=== PATIENT | female | born 1965 | race Caucasian/White ===

== ENCOUNTER 2016-04-18 11:07 | Observation (INO) | payer MEDICARE, OTHER ==
[~2016-04-18] VITALS: Ht 172.7 cm; Wt 61.3 kg
[2016-04-18] VITALS (9 sets, daily range): BP systolic 91–117; BP diastolic 56–68; PULSE 77–114; RESP 18–22; TEMP 98; O2SAT 87–96
[~2016-04-18 11:07] MED LIST: LORT5TAB PO; PARO10TA PO; TAB-TAB PO
[2016-04-18] MEDS ORDERED: HYDR-3533 PO (11:21)
[2016-04-18] MEDS ORDERED: PAXI10TA2 PO (11:21)
[2016-04-18] MEDS ORDERED: MULT1TAB84 PO (11:21)
--- NOTE | 2016-04-18 11:35 | PD ---
HPI Chief Complaint: Respiratory Symptoms Time Seen by Provider: 11:17 Travel History International Travel<30 days: No Contact w/Intl Traveler<30days: No Traveled to known affect area: No History of Present Illness HPI 50-year-old female came to the emergency room with history of shortness of breath and cough for past couple days. Patient is a heavy smoker and history of lung cancer with left lower lobe resection in the past. No history of fever or chills. No history of chest pain. Her oxygen saturation was in the high 80s in ER. [facility] Past Medical History Narrative Medical List of her past medical history as reviewed from the nursing note. Depression: Yes Cancer: Yes (lung cancer- LEFT LOWER LOBE) Diminished Hearing: No Musculoskeletal: Yes (HERNIATED DISC) Seizures: Yes ?: Not Past Surgical History Other Surgery: Yes (LEFT LOWER LOBE LUNG CA REMOVAL) Social History Alcohol Use: Yes (OCC) Tobacco Use: Yes (1/2 ppd) Substance Use: No Allergies-Medications (Allergen,Severity, Reaction): Coded Allergies: Penicillin (Verified Allergy, Severe, SWELLS UP, 04/18/16) Comments List of her allergies reviewed from the nursing note. Reported Meds & Prescriptions Reported Meds & Active Scripts Active Symbicort Inh (Budesonide/Formoterol Fumarate) 160-4.5 Mcg/Act Aero 1 Puff INH Q12HR Ventolin Hfa 18 GM Inh (Albuterol Sulfate) 90 Mcg/Act Aer 2 Puff INH Q4-6H PRN Prednisone 20 Mg Tab 20 Mg PO BID Levaquin (Levofloxacin) 750 Mg Tab 750 Mg PO DAILY 7 Days Reported Multivitamin Adults (Multiple Vitamins W/ Minerals) 1 Tab 1 Tab PO DAILY Paxil (Paroxetine HCl) 10 Mg Tab 10 Mg PO BID Lortab (Hydrocodone-Acetaminophen) 5-325 Mg Tab 1 Tab PO TID PRN Narrative Medication List of her home medications reviewed from the nursing note. Review of Systems Except as stated in HPI: all other systems reviewed are Neg Physical Exam Narrative GENERAL: Awake, alert, anxious, moderate distress SKIN: Warm and dry. HEAD: Atraumatic. Normocephalic. EYES: Pupils equal and round. No scleral icterus. No injection or drainage. ENT: No nasal bleeding or discharge. Mucous membranes pink and moist. NECK: Trachea midline. No JVD. CARDIOVASCULAR: Regular rate and rhythm. No murmur appreciated. RESPIRATORY: No accessory muscle use. Coarse breath sounds, end expiratory wheeze GASTROINTESTINAL: Abdomen soft, non-tender, nondistended. Hepatic and splenic margins not palpable. MUSCULOSKELETAL: No obvious deformities. No clubbing. No cyanosis. No edema. NEUROLOGICAL: Awake and alert. No obvious cranial nerve deficits. Motor grossly within normal limits. Normal speech. PSYCHIATRIC: Appropriate mood and affect; insight and judgment normal. Data Data Last Documented VS Vital Signs Date Time Temp Pulse Resp B/P Pulse Ox O2 Delivery O2 Flow Rate FiO2 04/18/16 14:56 87 Room Air 04/18/16 13:00 77 20 106/59 2 04/18/16 11:09 98.0 Orders Electrocardiogram (04/18/16 11:57) Basic Metabolic Panel (Bmp) (04/18/16 11:57) Ckmb (Isoenzyme) Profile (04/18/16 11:57) Complete Blood Count With Diff (04/18/16 11:57) Magnesium (Mg) (04/18/16 11:57) Prothrombin Time / Inr (Pt) (04/18/16 11:57) Act Partial Throm Time (Ptt) (04/18/16 11:57) Troponin I (04/18/16 11:57) Chest, Single Ap (04/18/16 11:57) Ecg Monitoring (04/18/16 11:57) Bilateral Bp Monitoring (04/18/16 11:57) Iv Access Insert/Monitor (04/18/16 11:57) Oximetry (04/18/16 11:57) Oxygen Administration (04/18/16 11:57) Aspirin Chew (Aspirin Chew) (04/18/16 12:00) Sodium Chloride 0.9% Flush (Ns Flush) (04/18/16 12:00) Albuterol Neb (Albuterol Neb) (04/18/16 12:00) Ct Pulmonary Angiogram (04/18/16 ) Methylprednisolone So Succ Inj (Solumedr (04/18/16 12:00) Sodium Chlor 0.9% 1000 Ml Inj (Ns 1000 M (04/18/16 12:00) Blood Culture (04/18/16 12:02) Lactic Acid (04/18/16 12:02) Iohexol 350 Inj (Omnipaque 350 Inj) (04/18/16 13:47) Albuterol Neb (Albuterol Neb) (04/18/16 15:00) Admit Order (Ed Use Only) (04/18/16 15:34) Labs Laboratory Tests Test 04/18/16 04/18/16 12:00 12:03 Lactic Acid Level 1.4 mmol/L White Blood Count 13.2 TH/MM3 Red Blood Count 4.23 MIL/MM3 Hemoglobin 14.1 GM/DL Hematocrit 42.4 % Mean Corpuscular Volume 100.1 FL Mean Corpuscular Hemoglobin 33.2 PG Mean Corpuscular Hemoglobin 33.2 % Concent Red Cell Distribution Width 13.0 % Platelet Count 243 TH/MM3 Mean Platelet Volume 8.9 FL Neutrophils (%) (Auto) 77.3 % Lymphocytes (%) (Auto) 15.9 % Monocytes (%) (Auto) 6.0 % Eosinophils (%) (Auto) 0.1 % Basophils (%) (Auto) 0.7 % Neutrophils # (Auto) 10.2 TH/MM3 Lymphocytes # (Auto) 2.1 TH/MM3 Monocytes # (Auto) 0.8 TH/MM3 Eosinophils # (Auto) 0.0 TH/MM3 Basophils # (Auto) 0.1 TH/MM3 CBC Comment DIFF FINAL Differential Comment Prothrombin Time 10.8 SEC Prothromb Time International 1.0 RATIO Ratio Activated Partial 30.5 SEC Thromboplast Time Sodium Level 138 MEQ/L Potassium Level 3.7 MEQ/L Chloride Level 105 MEQ/L Carbon Dioxide Level 25.4 MEQ/L Anion Gap 8 MEQ/L Blood Urea Nitrogen 11 MG/DL Creatinine 0.70 MG/DL Estimat Glomerular Filtration 88 ML/MIN Rate Random Glucose 158 MG/DL Calcium Level 9.2 MG/DL Magnesium Level 1.9 MG/DL Total Creatine Kinase 94 U/L Troponin I LESS THAN 0.02 NG/ML MDM Medical Decision Making Medical Screen Exam Complete: Yes Emergency Medical Condition: Yes Medical Record Reviewed: Yes Interpretation(s) Twelve-lead EKG was reviewed by me. Normal sinus rhythm, normal axis, nonspecific ST-T wave changes. Heart rate of 79 Beats per minute. Differential Diagnosis COPD exacerbation, pneumonia, bronchitis, PE Narrative Course 3:04 PM blood test results of back and within normal limit. Patient was given 3 duo nebs after which she said she symptomatically felt little better. However her oxygen saturation continued to be in low 90s and upon ambulation went down to 87% on room air. Patient is getting 3 more albuterol nebulizers and I have decided to admit her for COPD exacerbation. CAT scan was negative for PE. Critical Care Narrative Aggregate critical care time was 30 minutes. Time to perform other separately billable procedures was not included in the critical care time. My time did not include minutes spent treating any other patients simultaneously or on activities that did not directly contribute to the patient's treatment. The services I provided to this patient were to treat and/or prevent clinically significant deterioration that could result in: Acute COPD exacerbation, hypoxia, multiple nebulizers I provided critical care services requiring my management, as noted below: Chart data review, documentation time, medication orders and management, vital sign assessments/reviewing monitor data, ordering and reviewing lab tests, ordering and interpreting/reviewing x-rays and diagnostic studies, care of the patient and discussion of the patient with the admitting physicians. Procedures EKG Prior to Arrival: No Diagnosis Primary Impression: Acute exacerbation of chronic obstructive pulmonary disease (COPD) Additional Impressions: Hypoxia Respiratory distress Admitting Information Admitting Physician Requests: Admit Scripts Budesonide-Formoterol Inh (Symbicort Inh)160-4.5 Mcg/Act Aero1 Puff INH Q12HR # 1 INHALER Ref 0 Prov:Renato Abarca DO 04/18/16 Albuterol 18 GM Inh (Ventolin Hfa 18 GM Inh)90 Mcg/Act Aer2 Puff INH Q4-6H PRN ( SHORTNESS OF BREATH) #1 INHALER Ref 0 Prov:Renato Abarca DO 04/18/16 Prednisone 20 Mg Tab20 Mg PO BID #10 TAB Prov:Renato Abarca DO 04/18/16 Levofloxacin (Levaquin)750 Mg [id number] Mg PO DAILY 7 Days Prov:Renato Abarca DO 04/18/16 Dong Figueroa MD Apr 18, 2016 11:35
[2016-04-18] MEDS ORDERED: ASPIRIN 81 MG CHEW TAB PO ONE (12:00)
[2016-04-18] MEDS ORDERED: SODIUM CHLOR 0.9% 1000 ML INJ 1,000 ML IV ONE (12:00)
[2016-04-18] MEDS ORDERED: methylPREDNISolone SOD SUCC 125 MG/2 ML VIAL IV PUSH ONE (12:00)
[2016-04-18] MEDS ORDERED: SODIUM CHLORIDE 0.9% FLUSH 5 ML FLUSH IVF PRN (12:00)
[2016-04-18] MEDS ORDERED: RESP: ALBUTEROL 2.5 MG/3 ML NEB (SCH) NEB ONE (12:00)
[2016-04-18 12:22] LABS: AUTOMATED NEUTROPHIL # 10.2 TH/MM3 (1.8-7.7); BASOPHIL # 0.1 TH/MM3 (0-0.2); BASOPHIL % 0.7 % (0.0-2.0); EOSINOPHIL % 0.1 % (0.0-4.0); HEMATOCRIT 42.4 % (35.0-46.0); HEMO FLAGS DIFF FINAL; LYMPH % 15.9 % (9.0-44.0); LYMPHOCYTE # 2.1 TH/MM3 (1.0-4.8); MEAN CELL VOLUME 100.1 FL (80.0-100.0); MEAN CORPUSCULAR HEMOGLOBIN 33.2 PG (27.0-34.0); MEAN CORPUSCULAR HGB CONC 33.2 % (32.0-36.0); NEUT % 77.3 % (16.0-70.0); PLATELET COUNT 243 TH/MM3 (150-450); RED BLOOD COUNT 4.23 MIL/MM3 (4.00-5.30); WHITE BLOOD COUNT 13.2 TH/MM3 (4.0-11.0)
[2016-04-18 12:26] LABS: APTT (PATIENT) 30.5 SEC (24.3-30.1); PROTHROMBIN TIME - PATIENT 10.8 SEC (9.8-11.6)
[2016-04-18 12:36] LABS: ANION GAP 8 MEQ/L (5-15); BICARBONATE 25.4 MEQ/L (21.0-32.0); BLOOD UREA NITROGEN 11 MG/DL (7-18); CHLORIDE 105 MEQ/L (98-107); GLOMERULAR FILTRATION RATE 88 ML/MIN (>89); MAGNESIUM 1.9 MG/DL (1.5-2.5); POTASSIUM 3.7 MEQ/L (3.5-5.1); SODIUM (NA) 138 MEQ/L (136-145)
[2016-04-18 12:45] LABS: CREATINE KINASE 94 U/L (26-192)
--- NOTE | 2016-04-18 13:42 | RADRPT ---
EXAM DATE/TIME: 04/18/2016 12:34 [facility] COMPARISON: No previous studies available for comparison. INDICATIONS : Short of breath with wheezing. MEDICAL HISTORY : Lung Ca SURGICAL HISTORY : Lobectomy ENCOUNTER: Initial ACUITY: 2 days PAIN SCORE: 0/10 LOCATION: Bilateral chest FINDINGS: A single view of the chest demonstrates the lungs to be symmetrically aerated without evidence of mas s, infiltrate or effusion. The cardiomediastinal contours are unremarkable. Osseous structures are intact. CONCLUSION: No acute disease. Amador Baron MD on April 18, 2016 at 13:40 Board Certified Radiologist. This report was verified electronically.
[2016-04-18] MEDS ORDERED: IOHEXOL 350 MG/ML 50 ML BTL (for RAD DIAG) IV ONE (13:47)
--- NOTE | 2016-04-18 14:04 | RADRPT ---
EXAM DATE/TIME: 04/18/2016 13:30 [facility] COMPARISON: No previous studies available for comparison. INDICATIONS : Evaluate for embolism; cough,fever, and chills. IV CONTRAST: 50 cc Omnipaque 350 (iohexol) IV RADIATION DOSE: 5.39 CTDIvol (mGy) MEDICAL HISTORY : Carcinoma, lung. Seizures. SURGICAL HISTORY : None. ENCOUNTER: Initial ACUITY: 1 week PAIN SCALE: 4/10 LOCATION: Bilateral chest TECHNIQUE: Volumetric scanning of the chest was performed using a pulmonary embolism protocol MIP images were re constructed. Using automated exposure control and adjustment of the mA and/or kV according to patien t size, radiation dose was kept as low as reasonably achievable to obtain optimal diagnostic quality images. FINDINGS: PULMONARY ARTERIES: No filling defects are seen in the pulmonary arteries through the segmental level. LUNGS: There is no consolidation or pneumothorax . No concerning pulmonary nodule is visualized. PLEURAE: There is no pleural thickening or pleural effusion. MEDIASTINUM: There is good visualization of the great vessels of the middle mediastinum. No evidence of mediastin al or hilar adenopathy/mass. MUSCULOSKELETAL: Within normal limits for patient age. MISCELLANEOUS: The visualized upper abdominal organs demonstrate no acute abnormality. CONCLUSION: No evidence of acute cardiopulmonary process or pulmonary embolism. Amador Baron MD on April 18, 2016 at 14:00 Board Certified Radiologist. This report was verified electronically.
[2016-04-18] MEDS: RESP: ALBUTEROL 2.5 MG/3 ML NEB (SCH) INH ×2 (15:10→15:11)
--- NOTE | 2016-04-18 15:55 | HHI.HP ---
[facility] [place] [facility] Primary Care Physician JEFFERSON Hinson Admission Diagnosis COPD exacerbation, hypoxia, respiratory distress Diagnoses: Chief Complaint: Shortness of breath Travel History International Travel<30 Days: No Contact w/Intl Traveler <30 Da: No Traveled to Known Affected Are: No Sepsis Criteria SIRS Criteria (2 or more): Heart rate over 90, WBC > 49394, < 4000 or > 10% bands Sepsis Criteria (SIRS+source): Infect source susp/known History of Present Illness Patient is a 50-year-old white female came into the emergency room complaints of shortness of breath and cough 4 days. States that she has fevers and chills last week, 2 weeks ago felt that she has some flu symptoms but has resolved, she was left with coughing.. States that she is coughing but nothing is coming up. Patient smokes half a pack a day. His a history of lung cancer with metastases to the brain, status post left lower lobe lobectomy in craniotomy to take out the mass. Otherwise, states she doesn't have any other medical history. Followed by PCP in [facility] family practice. She is also being followed by [facility] for yearly PET scan and MRI. As per ED attending, patient did walk test and drop her O2 sat to 87. Currently off O2 patient O2 sat in the 90s to 92s. She received nebulizer treatments, IV Solu-Medrol. Currently, requesting to go home today if all is possible. Patient is very anxious. She also is "giddy" after 3 consecutive nebulizer treatments. Denies pain and discomfort. Denies chest pain, palpitations, headaches, dizziness. Denies fevers, chills, n/v/d. Review of Systems Constitutional: DENIES: Fever, Chills, Change in appetite Endocrine: DENIES: Heat/cold intolerance Eyes: DENIES: Blurred vision, Eye pain Other Negative except for what is noted on history of present illness. Past Family Social History Past Medical History Lung cancer brain mass Past Surgical History Lobectomy left lower lobe Craniotomy for the brain mass secondary to lung cancer Reported Medications Multivitamin Adults (Multiple Vitamins W/ Minerals) 1 Tab 1 Tab PO DAILY Paxil (Paroxetine HCl) 10 Mg Tab 10 Mg PO BID Lortab (Hydrocodone-Acetaminophen) 5-325 Mg Tab 1 Tab PO TID PRN Allergies: Coded Allergies: Penicillin (Verified Allergy, Severe, SWELLS UP, 04/18/16) Active Ordered Medications Current Medications Medications (Trade) Dose Ordered Sig/Bebe Route Start Time Stop Time Status Last Admin (NS 1000 ml Inj) 1,000 ml @ 100 mls/hr Q10H IV 04/18/16 16:00 (NS Flush) 2 ml UNSCH PRN FLUSH 04/18/16 16:00 (NS Flush) 2 ml BID FLUSH 04/18/16 21:00 (Tylenol) 650 mg Q4H PRN PO 04/18/16 16:00 (Zofran Inj) 4 mg Q6H PRN IVP 04/18/16 16:00 (Dulcolax Supp) 10 mg DAILY PRN RI 04/18/16 16:00 (Milk Of ICVRx Liq) 30 ml Q12H PRN PO 04/18/16 16:00 (Lovenox Inj) 40 mg Q24H SQ 04/18/16 16:00 (Narcan Inj) 0.4 mg UNSCH PRN IV 04/18/16 16:00 (Deltasone) 20 mg TID PO 04/18/16 18:00 04/23/16 17:59 (Levaquin) 750 mg DAILY PO 04/18/16 16:00 (Carriere 5-325 Mg) 1 tab TID PRN PO 04/18/16 16:00 (Theragran M Tab) 1 tab DAILY PO 04/19/16 09:00 (Paxil) 10 mg BID PO 04/18/16 21:00 (Pill Splitter) 1 ea UNSCH PRN OTHER 04/18/16 16:00 Family History No significant family medical history Social History Lives with . Occasional alcohol use Tobacco use half a pack a day current smoker Denies licit drug use. Physical Exam Vital Signs Vital Signs Date Time Temp Pulse Resp B/P Pulse Ox O2 Delivery O2 Flow Rate FiO2 04/18/16 14:56 87 Room Air 04/18/16 13:00 77 20 106/59 96 Nasal Cannula 2 04/18/16 12:30 88 20 113/56 95 Nasal Cannula 2 04/18/16 12:10 93 Nasal Cannula 2 04/18/16 12:10 93 Nasal Cannula 2 04/18/16 12:09 80 20 91/59 93 Nasal Cannula 2 04/18/16 11:21 98 22 93 Room Air 04/18/16 11:18 105 22 106/68 04/18/16 11:09 98.0 114 18 117/59 92 Room Air Physical Exam GENERAL: This is a well-nourished, well-developed patient, anxious. SKIN: No rashes, ecchymoses or lesions. Cool and dry. HEAD: Atraumatic. Normocephalic. No temporal or scalp tenderness. EYES: Pupils equal round and reactive. No scleral icterus. No injection or drainage. ENT: Nose without bleeding. Throat without erythema. Uvula midline. Airway patent. NECK: Trachea midline. No JVD or lymphadenopathy. Supple, nontender, no meningeal signs. CARDIOVASCULAR: Regular rate and rhythm without murmurs, gallops, or rubs. RESPIRATORY: Fair - Good air exchange. No wheezes, rales, or rhonchi. GASTROINTESTINAL: Abdomen soft, non-tender, nondistended. No hepato-splenomegaly , or palpable masses. No guarding. Bowel sounds active 4 MUSCULOSKELETAL: Extremities without clubbing, cyanosis, or edema. No joint tenderness, effusion, or edema noted. Varicosities noted. NEUROLOGICAL: Awake and alert. Anxious. No focal neuro deficit. Motor and sensory grossly within normal limits. Five out of 5 muscle strength in all muscle groups. Normal speech. Laboratory Laboratory Tests Test 04/18/16 04/18/16 12:00 12:03 Lactic Acid Level 1.4 White Blood Count 13.2 Red Blood Count 4.23 Hemoglobin 14.1 Hematocrit 42.4 Mean Corpuscular Volume 100.1 Mean Corpuscular Hemoglobin 33.2 Mean Corpuscular Hemoglobin 33.2 Concent Red Cell Distribution Width 13.0 Platelet Count 243 Mean Platelet Volume 8.9 Neutrophils (%) (Auto) 77.3 Lymphocytes (%) (Auto) 15.9 Monocytes (%) (Auto) 6.0 Eosinophils (%) (Auto) 0.1 Basophils (%) (Auto) 0.7 Neutrophils # (Auto) 10.2 Lymphocytes # (Auto) 2.1 Monocytes # (Auto) 0.8 Eosinophils # (Auto) 0.0 Basophils # (Auto) 0.1 CBC Comment DIFF FINAL Differential Comment Prothrombin Time 10.8 Prothromb Time International 1.0 Ratio Activated Partial 30.5 Thromboplast Time Sodium Level 138 Potassium Level 3.7 Chloride Level 105 Carbon Dioxide Level 25.4 Anion Gap 8 Blood Urea Nitrogen 11 Creatinine 0.70 Estimat Glomerular Filtration 88 Rate Random Glucose 158 Calcium Level 9.2 Magnesium Level 1.9 Total Creatine Kinase 94 Troponin I LESS THAN 0.02 Date/Time Procedure Status Source Growth 04/18/16 12:05 Aerobic Blood Culture Received Blood Peripheral Pending 04/18/16 12:05 Anaerobic Blood Culture Received Blood Peripheral Pending Result Diagram: 04/18/16 1203 04/18/16 1203 Imaging Last Impressions Chest X-Ray 04/18/16 1157 Signed Impressions: Service Date/Time: Monday, April 18, 2016 12:34 - CONCLUSION: No acute disease. Amador Baron MD CT Angiography 04/18/16 0000 Signed Impressions: Service Date/Time: Monday, April 18, 2016 13:30 - CONCLUSION: No evidence of acute cardiopulmonary process or pulmonary embolism. Amador Baron MD Assessment and Plan Problem List: (1) Acute exacerbation of chronic obstructive pulmonary disease (COPD) ICD Code: J44.1 Status: Acute (2) Hypoxia ICD Code: R09.02 Status: Acute (3) Respiratory distress ICD Code: R06.00 Status: Acute (4) Sepsis ICD Code: A41.9 Status: Acute (5) SIRS (systemic inflammatory response syndrome) ICD Code: R65.10 Status: Acute Assessment and Plan Patient is a 50-year-old white female came into the emergency room complaints of shortness of breath and cough 4 days. States that she has fevers and chills last week, 2 weeks ago felt that she has some flu symptoms but has resolved, she was left with coughing. Admitted to Observation unit for evaluation. SIRS, Sepsis - elevated WBC at 13.2, tachycardia 114, possible source of infection pulmonary Acute COPD exacerbation - history of lung cancer status post lobectomy, current smoker half a pack a day. - Patient received Solu-Medrol 125 mg in the ED, nebulizer treatments - Chest x-ray showed no acute disease. CT angiography shows no evidence of acute cardio pulmonary process or pulmonary embolism. - Start prednisone 20 mg 3 times a day - DuoNeb nebs every 6 hours while awake - Levaquin 750 mg daily - Monitor respiratory status - Monitor labs Anxiety continue with home meds Patient wanted to go home. Discuss and explained current condition possible outcome if not closely monitored including . Walk test was done earlier by nursing, as per ED attending patient desaturates to 87%. Discussed this results with patient. Respiratory therapy called for another walk test. If patient, can tolerate walk test with O2 sat greater than 88%, will DC patient home with meds, follow-up with her PCP. Patient agrees to stay and be closely monitored. Written by Almas Smith, acting as scribe for on 04/18/16 at 16:45. The documentation accurately reflects the work performed [id number] by me on at 16:45. Patient decided to leave AMA. Patient is hemodynamically stable except her O2 sat dropped to 87% on ambulation when done by ED. However, patient was speaking in full sentences, no acute respiratory distress at rest. We will provide medications for her COPD. We discussed extensively regarding leaving AMA and risks associated with it including further respiratory decline, possibly respiratory arrest. Patient verbalized understanding. Discharge patient to home - PATIENT left AGAINST MEDICAL ADVICE. Condition on discharge: Improved - but cautioned. We advised patient to stay in the hospital at least overnight for further monitoring. Regular Diet as tolerated Ad Sonya activity Rx written: - Albuterol Inh, Symbicort Inh, Levofloxacin 750mg Qday for 7 days. Prednisone 20mg BID for 5 days. Follow-up with primary care physician within one week. Code Status Full Code Discussed Condition With A shunt, nursing, ED attending. Renato Abarca DO Apr 18, 2016 3:55 pm Almas Rodas Apr 18, 2016 4:10 pm
[2016-04-18] MEDS ORDERED: ENOXAPARIN SODIUM 40 MG/0.4 ML SYRINGE SQ SCH (16:00)
[2016-04-18] MEDS ORDERED: MAGNESIUM HYDROXIDE SUSP 30 ML CUP PO PRN (16:00)
[2016-04-18] MEDS ORDERED: ACETAMINOPHEN 325 MG TAB PO PRN (16:00)
[2016-04-18] MEDS ORDERED: SODIUM CHLORIDE 0.9% FLUSH 5 ML FLUSH FLUSH PRN (16:00)
[2016-04-18] MEDS ORDERED: PILL SPLITTER OTHER PRN (16:00)
[2016-04-18] MEDS ORDERED: LEVOFLOXACIN 750 MG TAB PO SCH (16:00)
[2016-04-18] MEDS ORDERED: SODIUM CHLOR 0.9% 1000 ML INJ 1,000 ML IV SCH (16:00)
[2016-04-18] MEDS ORDERED: NALOXONE HCL 0.4 MG/ML AMP IV PRN (16:00)
[2016-04-18] MEDS ORDERED: ACETAMINOPHEN/HYDROcodone 325 MG/5 MG TAB PO PRN (16:00)
[2016-04-18] MEDS ORDERED: BISACODYL 10 MG SUPP PR PRN (16:00)
[2016-04-18] MEDS ORDERED: ONDANSETRON HCL 4 MG/2 ML VIAL IVP PRN (16:00)
[2016-04-18] MEDS ORDERED: VENTAER INH (17:56)
[2016-04-18] MEDS ORDERED: PRED20 PO (17:56)
[2016-04-18] MEDS ORDERED: LEVA750T PO (17:56)
[2016-04-18] MEDS ORDERED: SYMB160A INH (17:56)
[2016-04-18] MEDS ORDERED: predniSONE 20 MG TAB PO SCH (18:00)
[2016-04-18] MEDS ORDERED: RESP: ALBUTEROL 2.5 MG/IPRATROPIUM 0.5 MG NEB (SCH) NEB (20:00)
[2016-04-18] MEDS ORDERED: PARoxetine HCL 20 MG TAB PO SCH (21:00)
[2016-04-18] MEDS ORDERED: SODIUM CHLORIDE 0.9% FLUSH 5 ML FLUSH FLUSH SCH (21:00)
[2016-04-19] MEDS ORDERED: MULTIVITAMINS/MINERALS THERAPEUTIC TAB PO SCH (09:00)
--- NOTE | 2016-04-19 13:55 | EKG ---
Date Performed: 04/18/2016 Time Performed: 12:23:10 PTAGE: 50 years EKG: Sinus rhythm POSSIBLE LEFT ATRIAL ENLARGEMENT NONSPECIFIC T-WAVE ABNORMALITY BORDERLINE ECG NO PREVIOUS TRACING DOCTOR: Sushant Ingram Interpretating Date/Time 04/19/2016 13:53:29
== END 2016-04-18 20:58 | disposition left against medical advice (07) ==
LOC: NEPA 11:07 → NEDA 15:35
PROVIDERS: ADMIT Hospitalist; ATTEND Hospitalist
DX: J44.1 Chronic obstructive pulmonary disease with (acute) exacerbation (principal); R09.02 Hypoxemia; A41.9 Sepsis, unspecified organism; C79.31 Secondary malignant neoplasm of brain; R94.31 Abnormal electrocardiogram [ECG] [EKG]; F41.9 Anxiety disorder, unspecified; F17.200 Nicotine dependence, unspecified, uncomplicated; Z85.118 Personal history of other malignant neoplasm of bronchus and lung; Z90.2 Acquired absence of lung [part of]
CPT/HCPCS: 71010; 71275; 80048; 82550; 83605; 83735; 84484; 85025; 85610; 85730; 87040; 93005; 94640; 94664; 96374; 96375; 99291; G0378; J2930; J7030; J7613; Q9967